=== PATIENT | female | born 1965 | race Two or more races ===

== ENCOUNTER 2019-03-04 16:10 | Emergency (ER) | payer SELFPAY ==
[~2019-03-04] VITALS: Ht 160 cm; Wt 68.0 kg
[2019-03-04 16:44] VITALS: Ht 160 cm; Wt 68.0 kg
[2019-03-04 18:56] VITALS: BP 126/66
== END 2019-03-04 18:56 | disposition home or self-care (01) ==
LOC: ED 16:10
DX: G44.209 Tension-type headache, unspecified, not intractable (principal); M25.512 Pain in left shoulder; M25.511 Pain in right shoulder; V49.49XA Driver injured in collision with other motor vehicles in traffic accident, initial encounter; Y93.I9 Activity, other involving external motion; Y92.413 State road as the place of occurrence of the external cause; Y99.8 Other external cause status
CPT/HCPCS: J1885